=== PATIENT | female | born 1945 | race American Indian/Alaskan Native ===

== ENCOUNTER 2018-10-04 13:44 | Emergency (ER) | payer MEDICARE, OTHER ==
[~2018-10-04] VITALS: Ht 147.3 cm; Wt 61.0 kg
[~2018-10-04 13:44] MED LIST: ACETAMINOPHEN; HYDROCODONE; LORAZEPAM 0.5 MG TABLET; VENTOLIN 90 MCG
[2018-10-04 13:53] VITALS: BP 144/86
[2018-10-04] MEDS ORDERED: ondansetron/PF 4mg/2ml inj IV ONE (14:15)
[2018-10-04] MEDS ORDERED: fentaNYL/PF 50MCG/1 ML 2ML syringe IV ONE (14:15)
== END 2018-10-04 16:06 | disposition home or self-care (01) ==
LOC: ER 13:44
DX: M25.552 Pain in left hip (principal); G89.29 Other chronic pain; Z98.890 Other specified postprocedural states; Z88.5 Allergy status to narcotic agent; W01.0XXA Fall on same level from slipping, tripping and stumbling without subsequent striking against object, initial encounter; Y93.89 Activity, other specified; Y92.89 Other specified places as the place of occurrence of the external cause; Y99.8 Other external cause status
CPT/HCPCS: 70450; 72125; 73502; 73564; 96374; 96375; 99284; J2405; J3010

== ENCOUNTER 2019-09-13 14:10 | Emergency (ER) | payer MEDICARE ==
[~2019-09-13] VITALS: Ht 147.3 cm; Wt 57.0 kg
[2019-09-13 14:30] VITALS: BP 164/91
== END 2019-09-13 16:12 | disposition home or self-care (01) ==
LOC: ER 14:10
DX: S29.012A Strain of muscle and tendon of back wall of thorax, initial encounter (principal); G89.29 Other chronic pain; R05 Cough; J45.909 Unspecified asthma, uncomplicated; Z88.6 Allergy status to analgesic agent; Z88.8 Allergy status to other drugs, medicaments and biological substances; Z98.890 Other specified postprocedural states; Z87.39 Personal history of other diseases of the musculoskeletal system and connective tissue; X58.XXXA Exposure to other specified factors, initial encounter; Y93.89 Activity, other specified; Y92.89 Other specified places as the place of occurrence of the external cause; Y99.8 Other external cause status
CPT/HCPCS: 71046; 93005; 99283